=== PATIENT | female | born 1995 | race Caucasian/White ===

== ENCOUNTER 2017-06-20 23:00 | Emergency (ER) | payer OTHER ==
[~2017-06-20] VITALS: Ht 165.1 cm; Wt 54.4 kg
[~2017-06-20 23:00] MED LIST: ALBU90OI61 INH; IBUP800 PO
[2017-06-21] MEDS ORDERED: CEPH500 PO (02:06)
[2017-06-21] MEDS ORDERED: Diflucan100 MG PO (02:12)
[2017-06-22] MEDS ORDERED: NAPR500 PO (17:46)
[2017-06-22] MEDS ORDERED: Cleocin HCl300 MG PO (17:49)
[2017-06-22] MEDS ORDERED: PROBIOTIC ACID1 EAC3 PO (17:52)
== END 2017-06-21 02:16 | disposition home or self-care (01) ==
LOC: ER 23:00
DX: L03.211 Cellulitis of face (principal); J34.0 Abscess, furuncle and carbuncle of nose; F17.200 Nicotine dependence, unspecified, uncomplicated
CPT/HCPCS: 99283

== ENCOUNTER 2017-06-21 23:16 | Inpatient (IN) | payer OTHER ==
[~2017-06-21] VITALS: Ht 165.1 cm; Wt 51.5 kg
[~2017-06-21 23:16] MED LIST changes: +CEPH500 PO; +Diflucan100 MG PO
[2017-06-22 00:09] LABS: BASOPHILS ABSOLUTE AUTO 0.03 K/mm3 (0.00-0.23); BASOPHILS PERCENT AUTO 0 % (0-2); EOSINOPHILS ABSOLUTE AUTO 0.17 K/mm3 (0.00-0.68); EOSINOPHILS PERCENT AUTO 3 % (0-6); Hematocrit 48.1 % (33.0-51.0); Hemoglobin 16.2 g/dL (11.5-16.0); IMMATURE GRAN ABSOLUTE AUTO 0.01 K/mm3 (0.00-0.10); IMMATURE GRAN PERCENT AUTO 0 % (0-1); LYMPHOCYTES PERCENT AUTO 34 % (21-46); MONOCYTES ABSOLUTE AUTO 0.54 K/mm3 (0.16-1.47); MONOCYTES PERCENT AUTO 8 % (4-13); Mean Corpuscular HGB 28.7 pg (26.0-34.0); Mean Corpuscular HGB Conc 33.7 g/dL (31.5-36.5); Mean Corpuscular Volume 85 fL (80-100); Mean Platelet Volume 10.7 fL (9.1-12.4); NEUTROPHILS ABSOLUTE AUTO 3.75 K/mm3 (1.96-9.15); NEUTROPHILS PERCENT AUTO 55 % (41-73); Platelet Count 266 K/mm3 (150-400); RDW Standard Deviation 40.1 fL (35.1-46.3); Red Blood Cell Count 5.64 M/mm3 (3.80-5.20)
[2017-06-22 00:27] LABS: Alanine Aminotransfer (ALT/SGP 24 U/L (12-78); Albumin, Blood 4.2 g/dL (3.4-5.0); Albumin/Globulin Ratio 0.9 (0.8-1.8); Alk Phos 84 U/L (50-136); Anion Gap 8 mmol/L (6-16); Aspartate Aminotrans (AST/SGOT 24 U/L (12-37); Bilirubin, Total 0.5 mg/dL (0.1-1.0); Blood Urea Nitrogen 9 mg/dL (8-24); CO2, Blood 26 mmol/L (21-32); Calcium, Blood 9.4 mg/dL (8.5-10.1); Chloride, Blood 106 mmol/L (98-108); Creatinine, Blood 0.75 mg/dL (0.40-1.00); Globulin, Blood 4.8 g/dL (2.2-4.0); Glomerular Filtration Rate >60 (60-); Glucose, Blood 85 mg/dL (70-99); Potassium, Blood 3.7 mmol/L (3.5-5.5); Sodium, Blood 140 mmol/L (136-145)
[2017-06-22] MEDS ORDERED: NAPR500 PO (17:46)
[2017-06-22] MEDS ORDERED: Cleocin HCl300 MG PO (17:49)
[2017-06-22] MEDS ORDERED: PROBIOTIC ACID1 EAC3 PO (17:52)
== END 2017-06-22 18:15 | disposition home or self-care (01) | DRG 603 ==
LOC: ER 23:16 → MEDS 23:17
PROVIDERS: Emergency Medicine
DX: L03.213 Periorbital cellulitis (principal); F17.210 Nicotine dependence, cigarettes, uncomplicated; Z79.899 Other long term (current) drug therapy
CPT/HCPCS: 36415; 80053; 85025; 96365; 96366; 96375; 99285; G0378; J0295; J1885; J7030

== ENCOUNTER 2018-03-02 09:20 | Emergency (ER) | payer OTHER ==
[~2018-03-02] VITALS: Ht 165.1 cm; Wt 54.4 kg
[~2018-03-02 09:20] MED LIST changes: +Cleocin HCl300 MG PO; +NAPR500 PO; +PROBIOTIC ACID1 EAC3 PO
[2018-03-02] MEDS ORDERED: METH40 PO (09:33)
[2018-03-02] MEDS ORDERED: Augmentin 875-1 EACH PO (10:22)
[2018-03-02] MEDS ORDERED: Aerochamber1 EACH INH (10:22)
[2018-03-02] MEDS ORDERED: ALBU90OI INH (10:22)
== END 2018-03-02 10:39 | disposition home or self-care (01) ==
LOC: ER 09:20
DX: H66.91 Otitis media, unspecified, right ear (principal); J06.9 Acute upper respiratory infection, unspecified; F17.210 Nicotine dependence, cigarettes, uncomplicated
CPT/HCPCS: 71046; 99283-25

== ENCOUNTER → 2018-08-14 | Outpatient (CLI) | payer OTHER ==
[~2018-08-14] MED LIST changes: +ALBU90OI INH; +Aerochamber1 EACH INH; +Augmentin 875-1 EACH PO; +METH40 PO
== END | disposition home or self-care (01) ==
LOC: LAB SHORT 17:19 → LAB EV 17:19
DX: N39.0 Urinary tract infection, site not specified (principal)
CPT/HCPCS: 87086

== ENCOUNTER → 2018-10-10 | Outpatient (CLI) | payer OTHER | END | disposition home or self-care (01) | LOC: LAB SHORT 09:49 → LAB EV 09:49 | DX: N39.0 Urinary tract infection, site not specified (principal) | CPT/HCPCS: 87077; 87086; 87186 ==

== ENCOUNTER 2018-12-14 15:07 | Emergency (ER) | payer OTHER ==
[~2018-12-14] VITALS: Ht 165.1 cm; Wt 54.4 kg
[2018-12-14] MEDS ORDERED: Norco 5-325 Ta1 EACH PO (16:54)
== END 2018-12-14 17:00 | disposition home or self-care (01) ==
LOC: ER 15:07
DX: S16.1XXA Strain of muscle, fascia and tendon at neck level, initial encounter (principal); S29.012A Strain of muscle and tendon of back wall of thorax, initial encounter; S70.12XA Contusion of left thigh, initial encounter; S70.11XA Contusion of right thigh, initial encounter; V43.92XA Unspecified car occupant injured in collision with other type car in traffic accident, initial encounter; F17.200 Nicotine dependence, unspecified, uncomplicated
CPT/HCPCS: 72070; 72125; 72170; 73552; 96374; 99284-25; J1885

== ENCOUNTER → 2018-12-22 | Outpatient (CLI) | payer OTHER ==
[~2018-12-22] MED LIST changes: +Norco 5-325 Ta1 EACH PO
[2018-12-22 20:47] LABS: Campylobacter Sp Not Detected (NOT DETECT)
[2018-12-22 20:48] LABS: Adenovirus F 40/41 Not Detected (NOT DETECT); Astrovirus Not Detected (NOT DETECT); Cryptosporidium Not Detected (NOT DETECT); Cyclospora Cayetanensis Not Detected (NOT DETECT); E. Coli O157 Not Detected (NOT DETECT); Entamoeba Histolytica Not Detected (NOT DETECT); Enteroaggregative E. coli-EAEC Not Detected (NOT DETECT); Enteropathogenic E. coli-EPEC Not Detected (NOT DETECT); Enterotoxigenic E. coli-ETEC Not Detected (NOT DETECT); Giardia Lamblia Not Detected (NOT DETECT); Norovirus GI/GII Not Detected (NOT DETECT); Plesiomonas Shigelloides Not Detected (NOT DETECT); Rotavirus A Not Detected (NOT DETECT); Salmonella Sp Not Detected (NOT DETECT); Sapovirus Not Detected (NOT DETECT); Shiga Toxin-prod E. coli-STEC Not Detected (NOT DETECT); Shigella/Enteroin E. coli-EIEC Not Detected (NOT DETECT); Vibrio Cholerae Not Detected (NOT DETECT); Vibrio Sp Not Detected (NOT DETECT); Yersinia Enterocolitica Not Detected (NOT DETECT)
== END | disposition home or self-care (01) ==
LOC: LAB EV 15:34 → LAB SHORT 15:34
PROVIDERS: Physician Assistant Surgical
DX: R19.7 Diarrhea, unspecified (principal)
CPT/HCPCS: 0097U; 87324

== ENCOUNTER 2019-01-27 17:24 | Emergency (ER) | payer OTHER ==
[~2019-01-27] VITALS: Ht 165.1 cm; Wt 56.7 kg
[2019-01-27 18:40] LABS: BASOPHILS ABSOLUTE AUTO 0.04 K/mm3 (0.00-0.23); BASOPHILS PERCENT AUTO 0 % (0-2); EOSINOPHILS ABSOLUTE AUTO 0.03 K/mm3 (0.00-0.68); EOSINOPHILS PERCENT AUTO 0 % (0-6); Hemoglobin 14.5 g/dL (11.5-16.0); IMMATURE GRAN ABSOLUTE AUTO 0.04 K/mm3 (0.00-0.10); IMMATURE GRAN PERCENT AUTO 0 % (0-1); LYMPHOCYTES ABSOLUTE AUTO 1.86 K/mm3 (0.84-5.20); LYMPHOCYTES PERCENT AUTO 15 % (21-46); MONOCYTES ABSOLUTE AUTO 0.76 K/mm3 (0.16-1.47); MONOCYTES PERCENT AUTO 6 % (4-13); Mean Corpuscular HGB 31.4 pg (26.0-34.0); Mean Corpuscular HGB Conc 34.5 g/dL (31.5-36.5); Mean Corpuscular Volume 91 fL (80-100); NEUTROPHILS ABSOLUTE AUTO 10.14 K/mm3 (1.96-9.15); NEUTROPHILS PERCENT AUTO 79 % (41-73); Platelet Count 240 K/mm3 (150-400); RDW Coefficient Variation 12.4 % (11.7-14.2); RDW Standard Deviation 41.2 fL (35.1-46.3); Red Blood Cell Count 4.62 M/mm3 (3.80-5.20); White Blood Cell Count 12.87 K/mm3 (4.00-11.30)
[2019-01-27 18:57] LABS: Alanine Aminotransfer (ALT/SGP 37 U/L (12-78); Albumin, Blood 3.8 g/dL (3.4-5.0); Albumin/Globulin Ratio 1.2 (0.8-1.8); Alk Phos 56 U/L (50-136); Anion Gap 6 mmol/L (6-16); Aspartate Aminotrans (AST/SGOT 23 U/L (12-37); Bilirubin, Total 0.1 mg/dL (0.1-1.0); Blood Urea Nitrogen 10 mg/dL (8-24); Bun/Creatinine Ratio 15.7 (12.0-20.0); CO2, Blood 22 mmol/L (21-32); Calcium, Blood 8.5 mg/dL (8.5-10.1); Chloride, Blood 111 mmol/L (98-108); Creatinine, Blood 0.64 mg/dL (0.40-1.00); Globulin, Blood 3.2 g/dL (2.2-4.0); Glomerular Filtration Rate >60 (60-); Glucose, Blood 85 mg/dL (70-99); Potassium, Blood 3.5 mmol/L (3.5-5.5); Sodium, Blood 139 mmol/L (136-145)
== END 2019-01-28 20:50 | disposition home or self-care (01) ==
LOC: ER 17:24
PROVIDERS: Emergency Medicine
DX: O9A.211 Injury, poisoning and certain other consequences of external causes complicating pregnancy, first trimester (principal); T14.8XXA Other injury of unspecified body region, initial encounter; O99.89 Other specified diseases and conditions complicating pregnancy, childbirth and the puerperium; R10.30 Lower abdominal pain, unspecified; V43.52XA Car driver injured in collision with other type car in traffic accident, initial encounter; Z79.899 Other long term (current) drug therapy; O99.331 Smoking (tobacco) complicating pregnancy, first trimester; F17.200 Nicotine dependence, unspecified, uncomplicated; Z3A.01 Less than 8 weeks gestation of pregnancy
CPT/HCPCS: 36415; 76700; 76801; 76817; 80053; 83690; 84702; 85025; 99284-25

== ENCOUNTER → 2019-03-15 | Outpatient (CLI) | payer OTHER ==
[2019-03-17 18:06] LABS: CHLAMYDIA TRACHOMATIS, NAA Negative (Negative); NEISSERIA GONORRHOEAE, NAA Negative (Negative)
== END | disposition home or self-care (01) ==
LOC: LAB SHORT 16:00 → LAB 16:00
PROVIDERS: Obstetrics & Gynecology
DX: Z34.82 Encounter for supervision of other normal pregnancy, second trimester (principal)
CPT/HCPCS: 87491; 87591

== ENCOUNTER → 2019-04-24 | Outpatient (CLI) | payer OTHER | LOC: LAB SHORT 12:21 | DX: J06.9 Acute upper respiratory infection, unspecified (principal) | CPT/HCPCS: 87077; 87081; 87185 ==

== ENCOUNTER → 2019-08-23 | Outpatient (CLI) | payer OTHER | END | disposition home or self-care (01) | LOC: LAB SHORT 11:11 → LAB 11:11 | DX: Z34.83 Encounter for supervision of other normal pregnancy, third trimester (principal) | CPT/HCPCS: 87081; 87653 ==

== ENCOUNTER → 2020-01-29 | Outpatient (CLI) | payer OTHER | END | disposition home or self-care (01) | LOC: LAB EV 09:28 | DX: R30.9 Painful micturition, unspecified (principal) | CPT/HCPCS: 87086 ==

== ENCOUNTER 2020-04-16 10:45 | Day surgery (SDC) | payer OTHER ==
[~2020-04-16] VITALS: Ht 165.1 cm; Wt 58.6 kg
--- NOTE | 2020-04-16 11:58 | NUR ---
04/16/20 Mary Lechuga CALL LIGHT WITHIN REAC. IV ATTEMPTS X4. FOURTH ATTEMPT SUCCESSFUL. PT TOLERATED IV ATTEPTS WELL. PT SMILING AND LAUGHING
--- NOTE | 2020-04-16 14:07 | NUR ---
04/16/20 1407 Karlie Wing PT UP TO USE THE RESTROOM
== END 2020-04-16 14:38 | disposition home or self-care (01) ==
LOC: ORSCSDS 10:45
PROVIDERS: Obstetrics & Gynecology
PROC: 0JPV0HZ Removal of Contraceptive Device from Upper Extremity Subcutaneous Tissue and Fascia, Open Approach (ICD-10-PCS; principal; 2020-04-16 12:30)
PROC: 0UT74ZZ Resection of Bilateral Fallopian Tubes, Percutaneous Endoscopic Approach (ICD-10-PCS; principal; 2020-04-16 12:30)
DX: Z30.2 Encounter for sterilization (principal)
CPT/HCPCS: 88302; A9270; J0171; J1100; J2250; J2405; J2704; J3010; J7120

== ENCOUNTER → 2020-05-01 | Outpatient (CLI) | payer OTHER | END | disposition home or self-care (01) | LOC: PLD 13:23 → LAB SHORT 13:23 | DX: N87.1 Moderate cervical dysplasia (principal) | CPT/HCPCS: 88305; 88342 ==

== ENCOUNTER → 2020-05-21 | Outpatient (CLI) | payer OTHER | LOC: LAB SHORT 13:33 | DX: N87.1 Moderate cervical dysplasia (principal) | CPT/HCPCS: 88305 ==

== ENCOUNTER → 2020-12-06 | Outpatient (CLI) | payer OTHER ==
[2020-12-10 13:08] LABS: HPV 16 Negative (Negative); HPV 18 Negative (Negative); HPV OTHER HR TYPES Negative (Negative)
== END | disposition home or self-care (01) ==
LOC: LAB 11:34 → LAB SHORT 11:34
PROVIDERS: Advanced Practice Midwife
DX: N87.1 Moderate cervical dysplasia (principal)
CPT/HCPCS: 87624; 88142

== ENCOUNTER → 2023-01-20 | Outpatient (CLI) | payer OTHER ==
[2023-01-28 09:36] LABS: HPV GENOTYPE 16 Not Detected; HPV GENOTYPE 18 Not Detected; HPV HIGH RISK Not Detected; HPV SOURCE Cervical
== END ==
LOC: LAB SHORT 11:59 → LAB 11:59
PROVIDERS: Advanced Practice Midwife
DX: Z01.419 Encounter for gynecological examination (general) (routine) without abnormal findings (principal)
CPT/HCPCS: 87624; G0123

== ENCOUNTER → 2024-08-30 | Outpatient (CLI) | payer OTHER ==
[2024-08-31 02:17] LABS: Chlamydia Trachomatis Cervix NOT DETECTED (NOT DETECT); Neisseria Gonorrhoea Cervix NOT DETECTED (NOT DETECT)
== END | disposition home or self-care (01) ==
LOC: LAB SHORT 12:00 → LAB 12:00
PROVIDERS: Family Medicine
DX: Z01.419 Encounter for gynecological examination (general) (routine) without abnormal findings (principal)
CPT/HCPCS: 87491; 87591; 87624; G0123